=== PATIENT | female | born 1950 | race Native Hawaiian/Other Pacific Islander ===

== ENCOUNTER 2020-04-04 09:23 | Outpatient (CLI) | payer OTHER | END 2020-04-04 19:16 | disposition home or self-care (01) | LOC: LAB 09:23 | PROVIDERS: ATTEND Nurse Practitioner Family | DX: R06.02 Shortness of breath (principal); R09.81 Nasal congestion; Z11.59 Encounter for screening for other viral diseases | CPT/HCPCS: 87635; G2023; U0003 ==

== ENCOUNTER 2021-05-21 10:05 | Outpatient (CLI) | payer OTHER ==
[2021-05-21 10:47] LABS: PLATELET COUNT 269 K/uL (152-353)
[2021-05-21 11:01] LABS: POTASSIUM 3.5 mmol/L (3.6-5.2)
== END 2021-05-21 18:57 | disposition home or self-care (01) ==
LOC: RESP 10:05
PROVIDERS: ATTEND Nurse Practitioner Family
DX: R00.2 Palpitations (principal); R53.83 Other fatigue; F41.1 Generalized anxiety disorder
CPT/HCPCS: 36415; 80053; 82607; 83735; 84439; 84443; 85027; 93005

== ENCOUNTER 2021-05-22 08:21 | Outpatient (CLI) | payer OTHER | END 2021-05-22 19:10 | disposition home or self-care (01) | LOC: LABW 08:21 | PROVIDERS: ATTEND Nurse Practitioner Family | DX: R07.89 Other chest pain (principal); E78.2 Mixed hyperlipidemia; Z82.49 Family history of ischemic heart disease and other diseases of the circulatory system | CPT/HCPCS: 36415; 80061; 82172 ==